=== PATIENT | female | born 1950 | race Two or more races ===

== ENCOUNTER → 2024-09-09 | Outpatient (CLI) | payer MEDICARE, MEDICAID, SELFPAY ==
--- NOTE | 2024-09-09 09:26 | XR_ITS ---
Examination: Knee bilateral, 7 views Technique: Knee AP, lateral, oblique each knee total 6 views, bilateral axial knees single view total 7 views Date and time of exam: September 09, 2024, 0928 hours INDICATIONS: Bilateral knee pain beginning several years ago. FINDINGS: Moderate osteopenia Bilateral mild to moderate tricompartment osteoarthritis, more severe left knee Meniscus calcification No fracture No patellar dislocation IMPRESSION: Bilateral mild to moderate tricompartment osteoarthritis
--- NOTE | 2024-09-09 09:26 | XR_ITS ---
Examination: Lumbar spine, 5 views Technique: Lumbar spine AP, lateral, coned lateral lower lumbar spine, bilateral obliques 5 views Exam date and time: September 09, 2024, 0928 hours INDICATIONS: Low back pain beginning several years ago FINDINGS: Lumbar levoscoliosis 12 degrees Significant osteopenia Moderate narrowing hip joints Advanced diffuse facet arthropathy Diffuse lumbar degenerative disc disease, advanced L4-L5, L5-S1 4 mm calcified bulging disc L3-L4 IMPRESSION: Diffuse lumbar degenerative disc disease, advanced L4-L5, L5-S1 4 mm calcified bulging disc L3-L4
== END | disposition home or self-care (01) ==
PROVIDERS: PCP Nurse Practitioner Family; Referring Provider Nurse Practitioner Family; Visit Provider Nurse Practitioner Family
DX: M51.369 Other intervertebral disc degeneration, lumbar region without mention of lumbar back pain or lower extremity pain (principal); M51.379 Other intervertebral disc degeneration, lumbosacral region without mention of lumbar back pain or lower extremity pain; M53.86 Other specified dorsopathies, lumbar region; M17.0 Bilateral primary osteoarthritis of knee
CPT/HCPCS: 72110; 73564

== ENCOUNTER 2025-03-31 14:49 | Emergency (ER) | payer MEDICARE, MEDICAID, SELFPAY ==
[2025-03-31 14:50] VITALS: BMI 27.3
[2025-03-31 15:08] VITALS: BP 172/90; PULSE 92; RESP 18; TEMP 37.1; O2SAT 96
--- NOTE | 2025-03-31 15:14 | PD.EDRME ---
Rapid Medical Screening Exam E Arrival date/time: 03/31/25 14:49 74-year-old female with no known medical history presents to the emergency room with a chief complaint of frequent urination and feeling like she is not emptying out her bladder x 2 days I have greeted and performed a focused initial assessment of this patient. A comprehensive ED assessment and evaluation of the patient, analysis of all test results, and completion of the medical decision making process will be conducted by additional ED providers. Chief Complaint: Urogenital-Female Vital signs: Vital Signs Temperature 98.8 F 03/31/25 15:08 Pulse Rate 92 03/31/25 15:08 Respiratory Rate 18 03/31/25 15:08 Blood Pressure 172/90 H 03/31/25 15:08 Pulse Oximetry (%) 96 03/31/25 15:08 Oxygen Delivery Method Room Air 03/31/25 15:08 Vital signs reviewed by provider: Yes
[2025-03-31 15:45] LABS: Collection Type, Urine Clean Catch
[2025-03-31 15:48] LABS: Bilirubin,Urine Negative (Negative); Blood,Urine Trace (Negative); Clarity,Urine Clear (Clear/Hazy); Color,Urine Lt-Yellow (Lt Yel-Yel); Glucose, Urine Negative (Negative); Ketones,Urine Negative (Negative); Leukocyte Esterase,Urine Negative (Negative); Nitrite,Urine Negative (Negative); PH,Urine 6.0 (5.0-7.0); Protein,Urine Negative (Neg - Trace); RBC,Urine 2 /hpf (0-3); Specific Gravity,Urine 1.016 (1.001-1.035); Squamous Epithelial Cell,Urine 1 /hpf (0-5); Urobilinogen,Urine Negative mg/dL (0.0-1.0); WBC,Urine 1 /hpf (0-5)
[2025-03-31 15:52] LABS: Basophils # (Auto) 0.1 Thou/mm3 (0.0-0.2); Basophils % (Auto) 1 % (0-2.5); Eosinophils # (Auto) 0.1 Thou/mm3 (0.0-0.5); Eosinophils % (Auto) 1 % (0-10); Hematocrit 39.8 % (36.0-46.0); Hemoglobin 13.6 g/dL (12.0-16.0); Immature Granulocytes Auto 0.02 Thou/mm3 (0.00-0.00); Lymphocytes # (Auto) 4.9 Thou/mm3 (1.0-4.8); Lymphocytes % (Auto) 45 % (10-50); Mean Corpuscular HGB Conc 34.2 g/dl (31.0-37.0); Mean Corpuscular Hemoglobin 32.0 pg (25.0-35.0); Mean Corpuscular Volume 94 fL (80-100); Monocytes # (Auto) 0.7 Thou/mm3 (0.0-0.8); Monocytes % (Auto) 6 % (0-12); Neutrophils # (Auto) 5.1 Thou/mm3 (1.8-7.7); Neutrophils % (Auto) 47 % (37-80); Nucleated Red Blood Cell # 0.00 Thou/mm3 (0.00-0.00); Nucleated Red Blood Cell % 0 /100 WBC (0); Platelet Count 283 Thou/mm3 (140-440); RDW Standard Deviation 49.9 fL (36.4-46.3); Red Blood Count 4.25 Miln/mm3 (4.00-5.20); White Blood Count 10.8 Thou/mm3 (3.6-11.0)
[2025-03-31 16:24] LABS: Alanine Aminotransferase 8 U/L (10-49); Albumin, Serum 5.2 gm/dL (3.4-4.8); Albumin/Globulin Ratio 2.3 (1.2-2.2); Alkaline Phosphatase 109 U/L (46-116); Anion Gap 10 (7-16); Aspartate Amino Transferase 18 U/L (0-34); BUN/Creatinine Ratio 13 Ratio (12-20); Bilirubin,Total 0.2 mg/dL (0.3-1.2); Blood Urea Nitrogen 10 mg/dL (9-23); Calcium 9.4 mg/dL (8.3-10.6); Calcium (Corrected) 9.4 mg/dL (8.5-10.1); Carbon Dioxide 25.1 mMol/L (20.0-31.0); Chloride 108 mMol/L (98-107); Creatinine (Component) 0.8 mg/dL (0.6-1.3); Estimated Creatinine Clearance 54.4 mL/min (>60); Globulin 2.3 gm/dL (2.3-3.5); Glucose 90 mg/dL (74-106); Lipase 25 U/L (12-53); Osmolality,Calculated 283 (275-295); Potassium 3.6 mMol/L (3.4-5.1); Sodium 143 mMol/L (136-145); Total Protein 7.5 gm/dL (5.7-8.2); eGFR > 60 See Note
--- NOTE | 2025-03-31 16:53 | PD.EDFMALE ---
ED Female Urogenital RME/HPI General Chief complaint: Urogenital-Female Stated complaint: UNABLE TO URINATE Time Seen by Provider: 03/31/25 16:52 Source: patient Arrival date/time: 03/31/25 14:49 Mode of arrival: ambulatory Limitations: no limitations RME / HPI RME / HPI Narrative: 03/31/25 14:49 74-year-old female with no known medical history presents to the emergency room with a chief complaint of frequent urination and feeling like she is not emptying out her bladder x 2 days I have greeted and performed a focused initial assessment of this patient. A comprehensive ED assessment and evaluation of the patient, analysis of all test results, and completion of the medical decision making process will be conducted by additional ED providers. Dr. Reddy evaluation Patient is a 74-year-old female with medical history notable for stress urinary incontinence this in the emergency department with difficulty emptying her bladder. Denies fevers, chills, nausea, vomiting, chest pain, abdominal pain, dysuria, hematuria, melena, bloody stool, drugs, alcohol, smoking, recent travel, sick contacts. Patient states that she feels that her bladder is full and that she is having a hard time emptying her bladder. Related Data Home Medications ?Medication ?Instructions ?Recorded ?Confirmed alprazolam 0.5 mg tablet (Xanax) 0.5 mg PO TID #0 tabs 06/30/15 03/04/19 paroxetine HCl 20 mg tablet (Paxil) 20 mg PO QAM #0 tabs 06/30/15 03/04/19 albuterol sulfate 90 mcg/actuation 2 puff inhalation Q6H PRN Adequate 03/03/19 03/04/19 aerosol inhaler Ventilation fluticasone furoate 100 1 inh inhalation QDAY 03/03/19 03/04/19 mcg-vilanterol 25 mcg/dose inhalation powder (Breo Ellipta) hydrocodone 7.5 mg-acetaminophen 1 tab PO Q6H PRN Adequate 03/03/19 03/04/19 325 mg tablet (Phelps) Ventilation Allergies Allergy/AdvReac Type Severity Reaction Status Date / Time adhesive tape Allergy Verified 03/31/25 14:54 ED Exam General Limitations: Present no limitations General appearance: Present alert and in no apparent distress Head Head exam: Present atraumatic and normocephalic Eye Eye exam: Present normal appearance, PERRL and EOMI ENT ENT exam: Present normal exam and normal oropharynx Neck Neck exam: Present normal inspection Chest Chest inspection: Present normal inspection and symmetric chest wall rise Respiratory Respiratory exam: Absent respiratory distress Cardiovascular Cardiovascular exam: Present regular rate and normal rhythm Abdominal Exam Abdominal exam: Present soft; Absent distention or tenderness Extremities Exam Extremities exam: Present normal inspection and full ROM Neurological Exam Neurological exam: Present alert Psychiatric Psychiatric exam: Present normal affect Skin Skin exam: Present warm, dry and intact Course Quality Measures none Orders Category Date Time Status CBC Stat Lab 03/31/25 15:29 Completed CMP [Comprehensive Metabolic Panel] Stat Lab 03/31/25 15:29 Completed Lipase Stat Lab 03/31/25 15:29 Completed UA [Urinalysis] Stat Lab 03/31/25 15:25 Completed Urine Culture Stat Lab 03/31/25 15:25 Completed Vital Signs Vital signs: Vital Signs Temperature 98.8 F 03/31/25 15:08 Pulse Rate 92 03/31/25 15:08 Respiratory Rate 18 03/31/25 15:08 Blood Pressure 172/90 H 03/31/25 15:08 Pulse Oximetry (%) 96 03/31/25 15:08 Oxygen Delivery Method Room Air 03/31/25 15:08 Urogenital - Female MDM Narrative MDM Narrative:: Patient is a 74 yo female with medical history notable for stress urinary continence sent in the emergency department difficulty urinating and dysuria. Vital signs and exam as listed. Concern for urinary tract infection, urinary retention pancreatitis among others. Prior provider evaluated patient. Ordered workup. Labs without any acute hematologic abnormality, patient without any significant acute metabolic disturbance. Renal function without any significant abnormalities. No transaminitis. Lipase not elevated urinalysis negative nitrates negative leuk esterase 2 red blood cells 1 white blood cells. No bacteria. Less likely urinary tract infection. On my assessment patient hemodynamically stable not distressed. She states that she still feels that her bladder is full however denies any bladder pain or abdominal pain. At 1 point she requested medication for pain however it was not because of abdominal or bladder pain it was because she suffers from osteoporosis and has diffuse body aches chronically however does not want any pain medication home at this time. With regards to the patient's feeling that her bladder is full, I offered to do a bladder scan and if there is evidence of significant urinary retention I recommended that we place an indwelling Butt catheter with a leg bag and have her follow-up with a urologist as an outpatient. Patient in agreement. Bladder scan revealed <150cc urine. Patient does not want a butt catheter at this time. Catheter not indicated at this time given patient able to empty bladder adequately. Will dc to home with close return precaution s adn follow up with pcp. Patient data External records reviewed:: [facility] previous records Clinical information provided by:: patient Social determinants that could affect healthcare access:: none Patient has the following chronic illnesses:: See MDM How is presenting disease/condition affected by chronic disease/condition?: exacerbated by Evaluation data The following diagnostics were reviewed and interpreted by me:: lab results and radiology exam(s) Lab and/or radiology exams considered but not ordered:: none Interpretation Summary: See MDM Medications / Prescriptions Medications or Prescriptions considered but not ordered:: None Medication administrations:: See above Consultations Consultation(s) initiated? (list below): No Diagnosis Urogenital Female Differential Diagnosis: other (See MDM) Most likely diagnosis given after review of the tests above:: Suprapubic pain Admission Indicated Admission indicated?: not indicated Admission Request Was there a request for admission?: No Disposition Plan Disposition Plan: Discharge Discharge Attestation Discharge Attestation: The patient and all family members were given an opportunity to ask questions and understood the discharge instructions. Discharge instructions specifically effects, indications for sooner follow up or return to the emergency department, and the expected course of current diagnosis. Patient condition: Stable Discharge Plan Plan Patient Disposition: HOME (Self Care) Prescriptions/Referrals Prescriptions/Med Rec: No Action alprazolam [Xanax] 0.5 MG tablet 0.5 mg PO TID Qty: 0 paroxetine HCl [Paxil] 20 MG tablet 20 mg PO QAM Qty: 0 hydrocodone-acetaminophen [Phelps] 7.5-325 mg Tablet 1 tab PO Q6H PRN (Reason: Adequate Ventilation) albuterol sulfate 90 mcg/actuation Hfa Aerosol Inhaler 2 puff INHALATION Q6H PRN (Reason: Adequate Ventilation) Breo Ellipta 100-25 mcg/dose Blister With Device 1 inh INHALATION QDAY Referrals: No Primary/Family,Physician [Primary Care Provider] - In 1 week Problem List Clinical Impression: Dysuria Patient/Caregiver Discharge Instructions Education Materials: Dysuria Additional Instructions: Please follow up with your primary care doctor within 1-2 days. Return immediately if worsening symptoms or new symptoms of concern. Print Language: Albanian Stand Alone Forms: Lynda Award Info., Patient Portal Info Letter
== END 2025-03-31 17:33 | disposition home or self-care (01) ==
PROVIDERS: Nurse Practitioner Family; Emergency Provider Emergency Medicine
DX: R30.0 Dysuria (principal)
CPT/HCPCS: 36415; 80053; 81001; 83690; 85025; 87086; 99281